=== PATIENT | female | born 1965 | race Caucasian/White ===

== ENCOUNTER → 2016-11-01 | Outpatient (CLI) | payer OTHER | LOC: MC.RAD 11:20 | DX: D24.1 Benign neoplasm of right breast (principal) ==

== ENCOUNTER → 2017-09-24 | Outpatient (REF) | LOC: ZLAB.WCH 18:05 | DX: Z01.89 Encounter for other specified special examinations (principal) ==

== ENCOUNTER → 2018-05-06 | Outpatient (REF) | LOC: ZLAB.WCH 15:51 | DX: Z01.89 Encounter for other specified special examinations (principal) ==

== ENCOUNTER → 2019-04-14 | Outpatient (CLI) | payer OTHER | LOC: MC.RAD 11:27 | DX: Z12.31 Encounter for screening mammogram for malignant neoplasm of breast (principal); Z00.00 Encounter for general adult medical examination without abnormal findings ==

== ENCOUNTER 2019-06-24 08:51 | Day surgery (SDC) | payer OTHER ==
[~2019-06-24] VITALS: Ht 170.2 cm; Wt 81.4 kg
[2019-06-24 09:17] VITALS: BP 150/83; PULSE 65; TEMP 98
[2019-06-24 11:00] VITALS: BP 135/73; PULSE 65; TEMP 97.6
--- NOTE | 2019-06-24 11:00 | NUR ---
Pt came to room after procedure awake and oriented. Coffee brought per request. Dr. Reis reviewed procedure with patient. Pt has no further concerns/questions. VSS and WNL on RA. Call light within reach and at bedside.
[2019-06-24 11:15] VITALS: BP 118/86; PULSE 64
--- NOTE | 2019-06-24 11:15 | NUR ---
Pt sitting up in chair comfortably drinking coffee without n/v. at bedside and VSS and WNL. Pt requesting to get dressed to go home.
[2019-06-24 11:30] VITALS: BP 120/74; PULSE 68
--- NOTE | 2019-06-24 11:30 | NUR ---
Pt states she is ready to go home, and she meets criteria for discharge. She has no further questions and VSS and WNL.
== END 2019-06-24 11:40 | disposition home or self-care (01) ==
LOC: SDCO 08:51
DX: Z12.11 Encounter for screening for malignant neoplasm of colon (principal); K62.89 Other specified diseases of anus and rectum; K64.4 Residual hemorrhoidal skin tags
CPT/HCPCS: J2250; J3010; J7030

== ENCOUNTER → 2020-04-22 | Outpatient (CLI) | payer OTHER | LOC: MC.RAD 08:16 | DX: Z12.31 Encounter for screening mammogram for malignant neoplasm of breast (principal) ==

== ENCOUNTER → 2021-05-26 | Outpatient (CLI) | payer OTHER | LOC: MC.RAD 07:07 | DX: Z12.31 Encounter for screening mammogram for malignant neoplasm of breast (principal) ==

== ENCOUNTER 2021-10-10 10:54 | Emergency (ER) | payer OTHER ==
[~2021-10-10] VITALS: Ht 170.2 cm; Wt 77.3 kg
[2021-10-10 11:05] VITALS: TEMP 97.9
[2021-10-10 12:22] LABS: BASO # 0.1 K/mm3 (0.0-0.2); BASO % 1.2 % (0.0-2.0); EOS # 0.1 K/mm3 (0.0-0.7); EOS % 1.6 % (0.0-4.0); GRAN # 4.2 K/mm3 (1.4-6.5); GRAN % 50.8 % (42.2-75.2); HEMATOCRIT 43.6 % (37.0-47.0); HEMOGLOBIN 14.2 g/dl (12.5-16.0); LYMPH # 2.9 K/mm3 (1.2-3.4); LYMPH % 35.2 % (20.0-51.0); MEAN CELL VOLUME 98 fl (80.0-100.0); MEAN CORPUSCULAR HEMOGLOBIN 32 pg (27-31); MEAN CORPUSCULAR HGB CONC 33 g/dl (33.0-37.0); MONO # 0.9 K/mm3 (0.1-0.6); MONO % 10.7 % (1.7-9.3); PLATELET COUNT 337 K/mm3 (130-400); RED BLOOD COUNT 4.44 M/mm3 (4.10-5.30); REDCELL DISTRIBUTION WIDTH-CV 11.9 % (11.5-14.5)
[2021-10-10 12:30] LABS: ALANINE AMINOTRANSFERASE 65 U/L (0-55); ALBUMIN 4.3 gm/dL (3.5-5.0); ALKALINE PHOSPHATASE 86 U/L (40-150); ANION GAP 7 mmol/L (7-16); AST,SGOT 46 U/L (5-34); BILIRUBIN,TOTAL 0.7 mg/dL (0.2-1.2); BLOOD UREA NITROGEN 12 mg/dL (10-20); CALCIUM 9.9 mg/dL (8.4-10.2); CARBON DIOXIDE 27 mmol/L (22-29); CHLORIDE 108 mmol/L (98-107); GLUCOSE 99 mg/dL (70-99); POTASSIUM 4.2 mmol/L (3.5-4.5); SODIUM 142 mmol/L (136-145); TOTAL PROTEIN 7.7 gm/dL (6.2-8.1)
[2021-10-10 12:38] LABS: TROPONIN-I < 0.010 ng/mL (0.00-0.033)
[2021-10-10 15:10] VITALS: BP 108/61; PULSE 80
== END 2021-10-10 15:10 | disposition home or self-care (01) ==
LOC: COL.ER 10:54
PROVIDERS: Nurse Practitioner
DX: H53.8 Other visual disturbances (principal); M79.602 Pain in left arm
CPT/HCPCS: Q9967

== ENCOUNTER → 2022-07-13 | Outpatient (CLI) | payer OTHER | LOC: MC.RAD 12:58 | DX: Z12.31 Encounter for screening mammogram for malignant neoplasm of breast (principal) ==